=== PATIENT | female | born 1975 | race Two or more races ===

== ENCOUNTER → 2019-03-07 | Outpatient (CLI) | payer OTHER | END | disposition home or self-care (01) | LOC: SONOGRAMA 12:30 | DX: E04.2 Nontoxic multinodular goiter (principal) ==

== ENCOUNTER 2025-07-31 10:54 | Outpatient (CLI) | payer OTHER | END 2025-07-31 10:57 | disposition home or self-care (01) | LOC: SONOGRAMA 10:54 | PROVIDERS: ATTEND Pathology Anatomic Pathology & Clinical Pathology | DX: E04.1 Nontoxic single thyroid nodule (principal) ==